=== PATIENT | female | born 1970 | race Caucasian/White ===

== ENCOUNTER 2017-02-19 07:52 | Inpatient (IN) | payer OTHER ==
[~2017-02-19] VITALS: Ht 160 cm; Wt 79.1 kg
[~2017-02-19 07:52] MED LIST: ALBU18HF INH; HYDR-3152 PO; LEVO500T33 PO; METR500T PO; POLY17PO5 PO; SENN1TAB7 PO
[2017-02-19] MEDS ORDERED: ONDANSETRON 2MG/ML, 2ML IVPush ONE (08:30)
[2017-02-19] MEDS ORDERED: SODIUM CHLORIDE 0.9% 1,000ML IVBOLUS ONE (08:30)
[2017-02-19] MEDS ORDERED: FAMOTIDINE 20 MG/2 ML IVP ONE (08:30)
[2017-02-19] MEDS ORDERED: FAMOTIDINE 20 MG/2 ML ONE (08:41)
[2017-02-19] MEDS ORDERED: MORPHINE SULFATE 4 MG/ML, 1ML ONE ×2 (08:41→11:46)
[2017-02-19] MEDS ORDERED: ONDANSETRON 2MG/ML, 2ML ONE (08:41)
[2017-02-19] MEDS: MORPHINE SULFATE 4 MG/ML, 1ML IVPush PRN ×2 (08:42→11:49)
[2017-02-19] MEDS ORDERED: MAALOX/HYOSCYAMINE/LIDOCAINE 45 ML BOTTLE ONE (09:08)
[2017-02-19 09:09] LABS: ASPARTATE AMINO TRANSFERASE 27 U/L (15-37); BLOOD UREA NITROGEN 12 mg/dL (7-18)
[2017-02-19] MEDS ORDERED: MAALOX/HYOSCYAMINE/LIDOCAINE 45 ML BOTTLE PO ONE (09:30)
[2017-02-19] MEDS ORDERED: METOCLOPRAMIDE 5 MG/ML, 2ML IVPush ONE (09:30)
[2017-02-19] MEDS ORDERED: OMNIPAQUE 350 MG/ML, 100ML BOTTLE ONE (10:08)
[2017-02-19] MEDS ORDERED: METOCLOPRAMIDE 5 MG/ML, 2ML ONE (10:33)
[2017-02-19] MEDS ORDERED: LORazepam 2 MG/ML, 1ML IVPush PRN (12:30)
[2017-02-19] MEDS ORDERED: hydrALAzine 20 MG/ML, 1ML IVPush PRN (12:30)
[2017-02-19] MEDS ORDERED: ACETAMINOPHEN 325 MG TABLET PO PRN (12:30)
[2017-02-19] MEDS ORDERED: morphine SULFATE 10 MG/ML, 1ML IVPush PRN (12:30)
[2017-02-19] MEDS ORDERED: PROMETHAZINE 25 MG/ML, 1ML IM PRN (12:30)
[2017-02-19] MEDS ORDERED: HYDROcodone/APAP 5/325 TABLET PO PRN (12:30)
[2017-02-19] MEDS ORDERED: ONDANSETRON 2MG/ML, 2ML IVPush PRN (12:30)
[2017-02-19 12:40] VITALS: BP 132/82
[2017-02-19] MEDS: SODIUM CHLORIDE 0.9% 1,000 ML IV SCH (13:07)
[2017-02-19] MEDS: ENOXAPARIN 40 MG/0.4 ML SQ SCH (13:08)
[2017-02-19 13:09] VITALS: BP 132/82
[2017-02-19 14:00] VITALS: BP 132/82
[2017-02-19] MEDS ORDERED: SODIUM PHOSPHATE 20 MMOL in SODIUM CHLORIDE 0.9% 500 ML IV ONE (14:30)
[2017-02-19 20:03] VITALS: BP 104/64
[2017-02-19] MEDS: CALCIUM CARBONATE 500 MG TAB.CHEW PO SCH (21:34)
[2017-02-20] MEDS: SODIUM CHLORIDE 0.9% 1,000 ML IV SCH ×2 (01:19→12:26)
[2017-02-20 03:10] VITALS: BP 111/69
[2017-02-20 05:10] LABS: ASPARTATE AMINO TRANSFERASE 23 U/L (15-37); BLOOD UREA NITROGEN 6 mg/dL (7-18)
[2017-02-20 06:16] VITALS: BP 115/72
[2017-02-20 06:19] LABS: DIFF TOTAL CELLS COUNTED 100 CELL DIFF
[2017-02-20 06:23] LABS: VERIFY COUNTS? YES
[2017-02-20] MEDS: CALCIUM CARBONATE 500 MG TAB.CHEW PO SCH (10:02)
[2017-02-20] MEDS: ENOXAPARIN 40 MG/0.4 ML SQ SCH (12:25)
[2017-02-20 13:02] VITALS: BP 136/85
[2017-02-20] MEDS ORDERED: HYDR-3240 PO (13:55)
[2017-02-20] MEDS ORDERED: ONDA4TAB10 PO (13:55)
== END 2017-02-20 16:40 | disposition home or self-care (01) | DRG 392 ==
LOC: ED 08:05 → EDIP 10:58 → 3NE 12:32
DX: A08.4 Viral intestinal infection, unspecified (principal); J45.909 Unspecified asthma, uncomplicated; E83.51 Hypocalcemia; E86.0 Dehydration; Z90.49 Acquired absence of other specified parts of digestive tract; Z98.51 Tubal ligation status
CPT/HCPCS: 36415; 74020; 74177; 80053; 81003; 82705; 83690; 83735; 84100; 84703; 85025; 87046; 87324; 87899; 89055; 96374; 96375; 96376; J1650; J2405; Q9967; J2270; J2765; J7030; J7040; S0028

== ENCOUNTER 2017-03-26 14:46 | Emergency (ER) | payer OTHER ==
[~2017-03-26] VITALS: Ht 160 cm; Wt 81.1 kg
[~2017-03-26 14:46] MED LIST changes: +HYDR-3240 PO; -LEVO500T33 PO; +LEVO500T47 PO; +ONDA4TAB10 PO
[2017-03-26 14:49] VITALS: BP 131/86
[2017-03-26] MEDS ORDERED: KETOROLAC 30 MG/1 ML ONE (16:12)
[2017-03-26] MEDS ORDERED: DIAZEPAM 5 MG TABLET ONE (16:12)
[2017-03-26] MEDS ORDERED: KETOROLAC 30 MG/1 ML IM ONE (16:30)
[2017-03-26] MEDS ORDERED: DIAZEPAM 5 MG TABLET PO ONE (16:30)
== END 2017-03-26 17:01 | disposition home or self-care (01) ==
LOC: ED 16:55
DX: M54.5 Low back pain (principal); X50.9XXA Other and unspecified overexertion or strenuous movements or postures, initial encounter; Y93.89 Activity, other specified; Y99.0 Civilian activity done for income or pay; Y92.89 Other specified places as the place of occurrence of the external cause
CPT/HCPCS: 72110; 96372; 99284; J1885

== ENCOUNTER 2017-06-21 19:24 | Inpatient (IN) | payer OTHER ==
[~2017-06-21] VITALS: Ht 160 cm; Wt 81.6 kg
[2017-06-21] MEDS ORDERED: ASPIRIN 81 MG TABLET CHEW PO ONE (19:30)
[2017-06-21 19:59] LABS: HEMATOCRIT 41.2 % (34.6-47.8); HEMOGLOBIN 13.6 g/dL (11.7-16.4); WHITE BLOOD COUNT 7.9 x10^3/uL (3.4-10)
[2017-06-21 20:00] LABS: BLOOD UREA NITROGEN 16 mg/dL (7-18)
[2017-06-21 20:07] LABS: IS PT STATUS REG ER OR PRE ER? YES
[2017-06-21] MEDS ORDERED: ASPIRIN 81 MG TABLET CHEW ONE (20:08)
[2017-06-21] MEDS ORDERED: NITROGLYCERIN SINGLE TAB 0.4 MG SL PRN (20:30)
[2017-06-21] MEDS ORDERED: NITROGLYCERIN SINGLE TAB 0.4 MG SL ONE (20:31)
[2017-06-21] MEDS: SODIUM CHLORIDE FLUSH 10ML SYR IVF SCH (21:00)
[2017-06-21] MEDS ORDERED: morphine SULFATE 10 MG/ML, 1ML IV PRN (21:00)
[2017-06-21] MEDS ORDERED: NITROGLYCERIN 0.4 MG/SPRAY SL PRN (21:00)
[2017-06-21] MEDS ORDERED: SODIUM CHLORIDE FLUSH 10ML SYR IVF PRN (21:00)
[2017-06-21] MEDS ORDERED: NITROGLYCERIN 0.4 MG BOTTLE (25 TABS) SL PRN (21:00)
[2017-06-21 21:21] LABS: IS PT STATUS REG ER OR PRE ER? YES
[2017-06-21] MEDS ORDERED: SODIUM CHLORIDE 0.9% 1,000ML IVBOLUS ONE (22:00)
[2017-06-21 22:33] VITALS: BP 136/85
[2017-06-22 00:09] LABS: IS PT STATUS REG ER OR PRE ER? NO
[2017-06-22 02:35] VITALS: BP 110/72
[2017-06-22] MEDS: ASPIRIN 325 MG TABLET EC PO SCH (05:46)
[2017-06-22 06:28] VITALS: BP 133/85
[2017-06-22 06:34] VITALS: BP 126/75
[2017-06-22 06:46] VITALS: BP 122/72
[2017-06-22] MEDS: SODIUM CHLORIDE FLUSH 10ML SYR IVF SCH (08:03)
[2017-06-22] MEDS ORDERED: REGADENOSON 0.4 MG/5 ML SYRINGE ONE (08:18)
[2017-06-22] MEDS ORDERED: KETOROLAC 30 MG/1 ML IVPush PRN (09:00)
[2017-06-22] MEDS: ACETAMINOPHEN 325 MG TABLET PO PRN ×2 (10:54→17:10)
[2017-06-22 11:19] LABS: IS PT STATUS REG ER OR PRE ER? NO
[2017-06-22 12:17] VITALS: BP 119/76
[2017-06-22] MEDS ORDERED: MAALOX/HYOSCYAMINE/LIDOCAINE 45 ML BTL PO ONE (13:30)
[2017-06-22 20:15] VITALS: BP 99/63
[2017-06-23] MEDS: SODIUM CHLORIDE FLUSH 10ML SYR IVF SCH ×2 (02:24→08:36)
[2017-06-23] MEDS: ACETAMINOPHEN 325 MG TABLET PO PRN (02:24)
[2017-06-23 02:25] VITALS: BP 109/70
[2017-06-23] MEDS: ASPIRIN 325 MG TABLET EC PO SCH (06:37)
[2017-06-23 07:21] VITALS: BP 126/79
== END 2017-06-23 13:35 | disposition home or self-care (01) | DRG 313 ==
LOC: ED 20:35 → EDIP 20:58 → 5SO 22:10
PROVIDERS: ADMIT Family Medicine; ATTEND Internal Medicine
DX: R07.9 Chest pain, unspecified (principal); I25.2 Old myocardial infarction; Z82.3 Family history of stroke; Z82.49 Family history of ischemic heart disease and other diseases of the circulatory system; Z83.3 Family history of diabetes mellitus; Z86.73 Personal history of transient ischemic attack (TIA), and cerebral infarction without residual deficits; Z87.442 Personal history of urinary calculi; Z90.49 Acquired absence of other specified parts of digestive tract
CPT/HCPCS: 36415; 71010; 78452; 80048; 80061; 82040; 83880; 84484; 85025; 93005; 93017; 99285; J1885; J2785; A9502; C9898; J7030

== ENCOUNTER → 2017-09-07 | Outpatient (CLI) | payer OTHER | END | disposition home or self-care (01) | LOC: CFH 07:07 | PROVIDERS: ATTEND Emergency Medicine | DX: Z12.31 Encounter for screening mammogram for malignant neoplasm of breast (principal) | CPT/HCPCS: 77063; 77067 ==

== ENCOUNTER 2018-02-11 03:19 | Emergency (ER) | payer OTHER ==
[~2018-02-11] VITALS: Ht 160 cm; Wt 86.0 kg
[2018-02-11 03:51] LABS: BASOPHILS # (AUTO) 0.05 x10^3/uL (0-0.1); BASOPHILS % (AUTO) 1 % (0-1); EOSINOPHILS # (AUTO) 0.74 x10^3/uL (0-0.4); EOSINOPHILS % (AUTO) 10 % (1-7); LYMPHOCYTES # (AUTO) 2.23 x10^3/uL (1-3.4); LYMPHOCYTES % (AUTO) 31 % (22-44); MD NO; MEAN CORPUSCULAR HEMOGLOBIN 30.1 pg (27.0-34.8); MEAN CORPUSCULAR HGB CONC 33.7 g/dL (32.4-35.8); MEAN CORPUSCULAR VOLUME 89.3 fL (80-100); MEAN PLATELET VOLUME 8.6 fL (7.4-10.4); MONOCYTES # (AUTO) 0.67 x10^3/uL (0.2-0.8); MONOCYTES % (AUTO) 9 % (2-9); NEUTROPHILS % (AUTO) 50 % (42-75); PLATELET COUNT 318 x10^3/uL (130-400); RED BLOOD COUNT 4.43 x10^6/uL (3.82-5.3); RED CELL DISTRIBUTION WIDTH 12.8 % (9.6-15.2)
[2018-02-11] MEDS ORDERED: CYCLOBENZAPRINE 10 MG TABLET ONE (03:54)
[2018-02-11] MEDS ORDERED: IBUPROFEN 200 MG TABLET ONE (03:55)
[2018-02-11] MEDS ORDERED: CYCLOBENZAPRINE 10 MG TABLET PO ONE (04:00)
[2018-02-11] MEDS ORDERED: IBUPROFEN 200 MG TABLET PO ONE (04:00)
[2018-02-11 04:01] LABS: ALANINE AMINOTRANSFERASE 53 U/L (12-78); ALBUMIN 3.8 g/dL (3.4-5.0); ANION GAP 7 mmol/L (5-15); CALCIUM 8.6 mg/dL (8.5-10.1); CHLORIDE 108 mmol/L (98-107)
[2018-02-11 04:06] LABS: ALKALINE PHOSPHATASE 82 U/L (45-117); BILIRUBIN,TOTAL 0.5 mg/dL (0.2-1.0); CREATININE 0.85 mg/dL (0.55-1.02); TOTAL PROTEIN 7.2 g/dL (6.4-8.2); TROPONIN I < 0.015 ng/mL (0.000-0.045)
[2018-02-11 04:46] VITALS: BP 125/75
== END 2018-02-11 04:48 | disposition home or self-care (01) ==
LOC: ED 03:43
DX: S29.012A Strain of muscle and tendon of back wall of thorax, initial encounter (principal); R07.89 Other chest pain; X58.XXXA Exposure to other specified factors, initial encounter; Y93.89 Activity, other specified; Y92.89 Other specified places as the place of occurrence of the external cause; Y99.8 Other external cause status; Z90.89 Acquired absence of other organs
CPT/HCPCS: 36415; 71045; 80053; 84484; 84703; 85025; 93005; 99285

== ENCOUNTER 2018-07-22 03:42 | Emergency (ER) | payer OTHER ==
[~2018-07-22] VITALS: Ht 160 cm; Wt 86.0 kg
[~2018-07-22 03:42] MED LIST changes: -SENN1TAB7 PO; +SENN1TAB8 PO
[2018-07-22] MEDS ORDERED: SODIUM CHLORIDE FLUSH 10ML SYR IVF ONE (04:30)
[2018-07-22 04:37] LABS: BASOPHILS # (AUTO) 0.07 x10^3/uL (0-0.1); BASOPHILS % (AUTO) 1 % (0-1); EOSINOPHILS # (AUTO) 0.98 x10^3/uL (0-0.4); EOSINOPHILS % (AUTO) 15 % (1-7); LYMPHOCYTES # (AUTO) 1.87 x10^3/uL (1-3.4); LYMPHOCYTES % (AUTO) 29 % (22-44); MD NO; MEAN CORPUSCULAR HEMOGLOBIN 29.8 pg (27.0-34.8); MEAN CORPUSCULAR HGB CONC 33.6 g/dL (32.4-35.8); MEAN CORPUSCULAR VOLUME 88.6 fL (80-100); MEAN PLATELET VOLUME 8.6 fL (7.4-10.4); MONOCYTES # (AUTO) 0.47 x10^3/uL (0.2-0.8); MONOCYTES % (AUTO) 7 % (2-9); NEUTROPHILS # (AUTO) 3.05 x10^3/uL (1.8-6.8); NEUTROPHILS % (AUTO) 47 % (42-75); PLATELET COUNT 333 x10^3/uL (130-400); RED BLOOD COUNT 4.62 x10^6/uL (3.82-5.3); RED CELL DISTRIBUTION WIDTH 13.1 % (9.6-15.2)
[2018-07-22 04:42] LABS: INTERNATIONAL NORMALIZED RATIO 0.95 (0.93-1.1); PROTHROMBIN TIME 10.1 Seconds (9.6-11.5)
[2018-07-22 04:43] LABS: ALANINE AMINOTRANSFERASE 47 U/L (12-78); ALBUMIN 3.7 g/dL (3.4-5.0); ANION GAP 10 mmol/L (5-15); CALCIUM 8.6 mg/dL (8.5-10.1); CHLORIDE 109 mmol/L (98-107); CREATININE 0.66 mg/dL (0.55-1.02)
[2018-07-22 04:47] LABS: ALKALINE PHOSPHATASE 87 U/L (45-117); BILIRUBIN,TOTAL 0.6 mg/dL (0.2-1.0); TOTAL PROTEIN 7.2 g/dL (6.4-8.2); TROPONIN I < 0.015 ng/mL (0.000-0.045)
[2018-07-22] MEDS ORDERED: MAALOX/HYOSCYAMINE/LIDOCAINE 45 ML BTL ONE (05:17)
[2018-07-22] MEDS ORDERED: ONDANSETRON ODT 4 MG ONE (05:17)
[2018-07-22] MEDS ORDERED: ONDANSETRON ODT 4 MG PO ONE (05:30)
[2018-07-22] MEDS ORDERED: MAALOX/HYOSCYAMINE/LIDOCAINE 45 ML BTL PO ONE (05:30)
[2018-07-22] MEDS ORDERED: ONDANSETRON 2MG/ML, 2ML ONE (05:46)
[2018-07-22] MEDS ORDERED: MORPHINE SULFATE 4 MG/ML, 1ML ONE ×2 (05:46→06:44)
[2018-07-22] MEDS: MORPHINE SULFATE 4 MG/ML, 1ML IVPush PRN ×2 (05:50→07:00)
[2018-07-22] MEDS ORDERED: ONDANSETRON 2MG/ML, 2ML IVPush ONE (06:00)
[2018-07-22 06:24] LABS: CULTURE INDICATED? NO; MICROSCOPIC NOT IND
[2018-07-22] MEDS ORDERED: OMNIPAQUE 350 MG/ML, 100ML BOTTLE ONE (06:48)
[2018-07-22] MEDS ORDERED: DICYCLOMINE 10 MG/ML, 2ML IM ONE (07:00)
[2018-07-22] MEDS ORDERED: DICYCLOMINE 10 MG/ML, 2ML ONE (07:06)
[2018-07-22 07:42] LABS: TROPONIN I < 0.015 ng/mL (0.000-0.045)
[2018-07-22 07:56] VITALS: BP 115/72
== END 2018-07-22 08:39 | disposition home or self-care (01) ==
LOC: ED 06:23
DX: R07.89 Other chest pain (principal); R10.84 Generalized abdominal pain; E78.5 Hyperlipidemia, unspecified
CPT/HCPCS: 36415; 71045; 74177; 80053; 81003; 83690; 83880; 84484; 85025; 85610; 85730; 93005; 96372; 96374; 96375; 96376; 99284; J0500; J2405; Q0162; Q9967

== ENCOUNTER → 2018-09-15 | Outpatient (CLI) | payer OTHER | END | disposition home or self-care (01) | LOC: CFH 10:35 | PROVIDERS: ATTEND Obstetrics & Gynecology | DX: Z12.31 Encounter for screening mammogram for malignant neoplasm of breast (principal) | CPT/HCPCS: 77067 ==

== ENCOUNTER → 2018-11-03 | Outpatient (CLI) | payer OTHER ==
[~2018-11-03] MED LIST changes: +OMNIPAQUE 350 MG/ML, 100ML BOTTLE ONE; +SENN-177 PO; -SENN1TAB8 PO
== END | disposition home or self-care (01) ==
LOC: CFH 09:55
PROVIDERS: ATTEND Family Medicine
DX: K76.0 Fatty (change of) liver, not elsewhere classified (principal); N28.1 Cyst of kidney, acquired; Z90.49 Acquired absence of other specified parts of digestive tract; Z98.51 Tubal ligation status
CPT/HCPCS: 74177; Q9967

== ENCOUNTER 2019-01-09 20:28 | Emergency (ER) | payer OTHER ==
[~2019-01-09] VITALS: Ht 160 cm; Wt 83.4 kg
[~2019-01-09 20:28] MED LIST changes: -OMNIPAQUE 350 MG/ML, 100ML BOTTLE ONE
--- NOTE | 2019-01-09 20:35 | NUR ---
bib staff for code 250. 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 pt placed on all monitors, currently nsr on monitor with ekg being done.
--- NOTE | 2019-01-09 20:41 | NUR ---
Code 250 called because patient reports single brief episode of vision loss. Denies syncope. Only complaint in ED is mild nausea. Placed on NIBP, pulse ox and monitoring and evaluation advisor. EKG done. Placed on NIBP, pulse ox and monitoring and evaluation advisor. Will continue to monitor.
--- NOTE | 2019-01-09 21:18 | NUR ---
Resting in [facility]. No other needs at this time.
[2019-01-09 21:25] LABS: BASOPHILS # (AUTO) 0.03 x10^3/uL (0-0.1); BASOPHILS % (AUTO) 0 % (0-1); EOSINOPHILS # (AUTO) 0.61 x10^3/uL (0-0.4); EOSINOPHILS % (AUTO) 8 % (1-7); LYMPHOCYTES # (AUTO) 2.29 x10^3/uL (1-3.4); LYMPHOCYTES % (AUTO) 28 % (22-44); MD NO; MEAN CORPUSCULAR HEMOGLOBIN 29.5 pg (27.0-34.8); MEAN CORPUSCULAR HGB CONC 32.3 g/dL (32.4-35.8); MEAN CORPUSCULAR VOLUME 91.2 fL (80-100); MEAN PLATELET VOLUME 8.5 fL (7.4-10.4); MONOCYTES # (AUTO) 0.53 x10^3/uL (0.2-0.8); MONOCYTES % (AUTO) 7 % (2-9); NEUTROPHILS # (AUTO) 4.73 x10^3/uL (1.8-6.8); NEUTROPHILS % (AUTO) 58 % (42-75); PLATELET COUNT 307 x10^3/uL (130-400); RED BLOOD COUNT 4.61 x10^6/uL (3.82-5.3)
[2019-01-09 21:36] LABS: ALBUMIN 3.7 g/dL (3.4-5.0); ANION GAP 6 mmol/L (5-15); CALCIUM 8.5 mg/dL (8.5-10.1); CHLORIDE 110 mmol/L (98-107); CREATININE 0.93 mg/dL (0.55-1.02)
--- NOTE | 2019-01-09 22:00 | NUR ---
Report to TATIANA Hill.
[2019-01-09 22:57] VITALS: BP 134/80
== END 2019-01-09 23:02 | disposition home or self-care (01) ==
LOC: ED 21:16
DX: R55 Syncope and collapse (principal); F17.200 Nicotine dependence, unspecified, uncomplicated; Z90.49 Acquired absence of other specified parts of digestive tract
CPT/HCPCS: 36415; 80048; 82040; 82962; 85025; 93005; 99284

== ENCOUNTER 2019-07-05 06:53 | Observation (INO) | payer OTHER ==
[2019-07-03 10:12] LABS: BASOPHILS # (AUTO) 0.05 x10^3/uL (0-0.1); BASOPHILS % (AUTO) 1 % (0-1); EOSINOPHILS # (AUTO) 0.38 x10^3/uL (0-0.4); EOSINOPHILS % (AUTO) 6 % (1-7); LYMPHOCYTES # (AUTO) 1.93 x10^3/uL (1-3.4); LYMPHOCYTES % (AUTO) 32 % (22-44); MD NO; MEAN CORPUSCULAR HEMOGLOBIN 29.7 pg (27.0-34.8); MEAN CORPUSCULAR HGB CONC 32.9 g/dL (32.4-35.8); MEAN CORPUSCULAR VOLUME 90.1 fL (80-100); MEAN PLATELET VOLUME 8.1 fL (7.4-10.4); MONOCYTES # (AUTO) 0.48 x10^3/uL (0.2-0.8); MONOCYTES % (AUTO) 8 % (2-9); NEUTROPHILS # (AUTO) 3.24 x10^3/uL (1.8-6.8); NEUTROPHILS % (AUTO) 53 % (42-75); PLATELET COUNT 307 x10^3/uL (130-400); RED BLOOD COUNT 4.74 x10^6/uL (3.82-5.3)
[2019-07-03 10:20] LABS: ALANINE AMINOTRANSFERASE 33 U/L (12-78); ALBUMIN 3.8 g/dL (3.4-5.0); ANION GAP 6 mmol/L (5-15); CALCIUM 8.8 mg/dL (8.5-10.1); CHLORIDE 106 mmol/L (98-107); CREATININE 0.65 mg/dL (0.55-1.02)
[2019-07-03 10:23] LABS: ALKALINE PHOSPHATASE 92 U/L (45-117); BILIRUBIN,TOTAL 0.5 mg/dL (0.2-1.0); TOTAL PROTEIN 7.7 g/dL (6.4-8.2)
[2019-07-03 12:08] LABS: HEMOGLOBIN A1C 5.4 % (4.2-6.3)
[~2019-07-05] VITALS: Ht 160 cm; Wt 82.5 kg
[~2019-07-05 06:53] MED LIST changes: +IBUP-1222 PO
[2019-07-05 07:24] VITALS: BP 161/94
[2019-07-05] MEDS ORDERED: LACTATED RINGERS 1,000 ML IV SCH (07:26)
[2019-07-05] MEDS ORDERED: LIDOCAINE-MPF 2% ,5ML ONE (07:29)
[2019-07-05] MEDS ORDERED: FENTANYL PF 250 MCG/5ML ONE (07:29)
[2019-07-05] MEDS ORDERED: MIDAZOLAM 1 MG/ML, 2ML ONE (07:29)
[2019-07-05] MEDS ORDERED: SUCCINYLCHOLINE 20 MG/ML, 10ML ONE (07:33)
[2019-07-05] MEDS ORDERED: PROPOFOL 10 MG/ML, 20ML ONE (07:33)
[2019-07-05] MEDS ORDERED: NEOSTIGMINE 1 MG/ML, 10ML ONE (07:33)
[2019-07-05] MEDS ORDERED: LIDOCAINE 4%, 4 ML SYR/CANN TP ONE (07:33)
[2019-07-05] MEDS ORDERED: CEFAZOLIN 1,000 MG ONE (07:33)
[2019-07-05] MEDS ORDERED: GLYCOPYRROLATE 0.2MG/1ML, 5ML ONE (07:33)
[2019-07-05] MEDS ORDERED: ROCURONIUM 10MG/ML,5ML ONE (07:33)
[2019-07-05] MEDS ORDERED: ONDANSETRON 2MG/ML, 2ML ONE (07:33)
[2019-07-05] MEDS ORDERED: DEXAMETHASONE 4 MG/ML, 1ML ONE (07:33)
[2019-07-05] MEDS ORDERED: GENTAMICIN 80 MG/2 ML ONE (08:44)
[2019-07-05] MEDS ORDERED: BUPIVACAINE/PF 0.25% ONE (08:44)
[2019-07-05] MEDS ORDERED: VANCOMYCIN 500 MG ONE (08:44)
[2019-07-05] MEDS ORDERED: FLUORESCEIN SODIUM 500 MG/5 ML ONE (08:44)
[2019-07-05] MEDS ORDERED: EPINEPHRINE 1 MG/ML, 1ML ONE (08:45)
[2019-07-05] MEDS ORDERED: ACETAMINOPHEN 325 MG TABLET PO PRN ×2 (09:00→15:00)
[2019-07-05] MEDS ORDERED: PROMETHAZINE 25 MG SUPP PR PRN (09:00)
[2019-07-05] MEDS ORDERED: OXYcodone 5 MG/5 ML ORAL.SOL UDC PO PRN (09:00)
[2019-07-05] MEDS ORDERED: HYDROmorphone 2 MG/ML, 1ML IVPush PRN (09:00)
[2019-07-05] MEDS ORDERED: PROMETHAZINE 25 MG/ML, 1ML IV PRN (09:00)
[2019-07-05] MEDS ORDERED: MEPERIDINE/PF 25MG/ML,1ML IVPush PRN (09:00)
[2019-07-05] MEDS ORDERED: ONDANSETRON ODT 8 MG PO PRN (09:00)
[2019-07-05] MEDS ORDERED: LORazepam 2 MG/ML, 1ML IVPush PRN (09:00)
[2019-07-05] MEDS ORDERED: ONDANSETRON 2MG/ML, 2ML IV PRN (09:00)
[2019-07-05] MEDS ORDERED: FENTANYL PF 100 MCG/2ML ONE ×3 (10:35→13:19)
[2019-07-05] MEDS ORDERED: THROMBIN SPRAY 20,000 UNIT SPRAY TP ONE (10:49)
[2019-07-05] MEDS ORDERED: ACETAMINOPHEN 650 MG/20.3 ML UDC ONE (12:19)
[2019-07-05] MEDS ORDERED: OXYcodone 5 MG/5 ML ORAL.SOL UDC ONE (12:19)
[2019-07-05] MEDS ORDERED: ACETAMINOPHEN 325 MG TABLET ONE (12:19)
[2019-07-05] MEDS: FENTANYL PF 100 MCG/2ML IV PRN ×3 (12:20→13:20)
[2019-07-05] MEDS ORDERED: KETOROLAC 30 MG/1 ML ONE (12:29)
[2019-07-05] MEDS ORDERED: KETOROLAC 30 MG/1 ML IM ONE (13:00)
[2019-07-05] MEDS ORDERED: KETOROLAC 30 MG/1 ML IVPush ONE (13:00)
[2019-07-05] MEDS ORDERED: PROMETHAZINE 25 MG/ML, 1ML ONE (13:20)
[2019-07-05] MEDS: D5%-LACTATED RINGERS 1,000 ML IV SCH ×2 (14:37→21:11)
[2019-07-05] MEDS ORDERED: FLURAZEPAM PO PRN (15:00)
[2019-07-05] MEDS ORDERED: morphine SULFATE 10 MG/ML, 1ML IVPush PRN (15:00)
[2019-07-05] MEDS ORDERED: MEPERIDINE/PF 50 MG/ML IM PRN (15:00)
[2019-07-05] MEDS ORDERED: KETOROLAC 30 MG/1 ML IVPush PRN (15:00)
[2019-07-05] MEDS ORDERED: ACETAMINOPHEN 650 MG SUPP PR PRN (15:00)
[2019-07-05 16:48] LABS: BASOPHILS % (AUTO) 0 % (0-1); EOSINOPHILS # (AUTO) 0.37 x10^3/uL (0-0.4); EOSINOPHILS % (AUTO) 2 % (1-7); LYMPHOCYTES # (AUTO) 0.63 x10^3/uL (1-3.4); LYMPHOCYTES % (AUTO) 4 % (22-44); MEAN CORPUSCULAR HEMOGLOBIN 30.4 pg (27.0-34.8); MEAN CORPUSCULAR VOLUME 92.1 fL (80-100); MEAN PLATELET VOLUME 8.7 fL (7.4-10.4); MONOCYTES # (AUTO) 0.15 x10^3/uL (0.2-0.8); MONOCYTES % (AUTO) 1 % (2-9); NEUTROPHILS # (AUTO) 14.53 x10^3/uL (1.8-6.8); NEUTROPHILS % (AUTO) 93 % (42-75); PLATELET COUNT 315 x10^3/uL (130-400); RED BLOOD COUNT 4.26 x10^6/uL (3.82-5.3); RED CELL DISTRIBUTION WIDTH 13.4 % (9.6-15.2)
[2019-07-05] MEDS: OXYcodone/APAP 5/325MG TABLET PO PRN (17:05)
[2019-07-05 17:10] LABS: MD SCAN
[2019-07-05 20:00] VITALS: BP 106/70
[2019-07-05] MEDS: SIMETHICONE 80 MG CHEW TAB PO SCH ×2 (21:00→21:08)
[2019-07-05] MEDS ORDERED: ZOLPIDEM 5MG TABLET PO PRN (21:00)
[2019-07-05] MEDS: IBUPROFEN 600 MG TABLET PO SCH (21:08)
[2019-07-05] MEDS: DOCUSATE 100 MG CAPSULE PO SCH (21:09)
[2019-07-06] MEDS: IBUPROFEN 600 MG TABLET PO SCH ×4 (03:41→16:15)
[2019-07-06 03:46] VITALS: BP 100/61
[2019-07-06 04:41] LABS: BASOPHILS # (AUTO) 0.02 x10^3/uL (0-0.1); BASOPHILS % (AUTO) 0 % (0-1); EOSINOPHILS % (AUTO) 0 % (1-7); LYMPHOCYTES # (AUTO) 1.51 x10^3/uL (1-3.4); LYMPHOCYTES % (AUTO) 12 % (22-44); MD NO; MEAN CORPUSCULAR HEMOGLOBIN 29.7 pg (27.0-34.8); MEAN CORPUSCULAR HGB CONC 32.4 g/dL (32.4-35.8); MEAN CORPUSCULAR VOLUME 91.6 fL (80-100); MEAN PLATELET VOLUME 8.4 fL (7.4-10.4); MONOCYTES # (AUTO) 0.85 x10^3/uL (0.2-0.8); MONOCYTES % (AUTO) 7 % (2-9); NEUTROPHILS # (AUTO) 10.45 x10^3/uL (1.8-6.8); NEUTROPHILS % (AUTO) 82 % (42-75); PLATELET COUNT 269 x10^3/uL (130-400); RED BLOOD COUNT 3.93 x10^6/uL (3.82-5.3); RED CELL DISTRIBUTION WIDTH 12.8 % (9.6-15.2)
[2019-07-06 04:51] LABS: ANION GAP 3 mmol/L (5-15); CALCIUM 8.4 mg/dL (8.5-10.1); CHLORIDE 107 mmol/L (98-107)
[2019-07-06 04:55] LABS: ALANINE AMINOTRANSFERASE 31 U/L (12-78); ALKALINE PHOSPHATASE 67 U/L (45-117); BILIRUBIN,TOTAL 0.7 mg/dL (0.2-1.0); CREATININE 0.53 mg/dL (0.55-1.02); TOTAL PROTEIN 6.2 g/dL (6.4-8.2)
[2019-07-06 08:12] VITALS: BP 102/63
[2019-07-06] MEDS ORDERED: SENNA/DOCUSATE TABLET PO SCH (09:00)
[2019-07-06] MEDS: DOCUSATE 100 MG CAPSULE PO SCH (09:18)
[2019-07-06] MEDS: SIMETHICONE 80 MG CHEW TAB PO SCH ×2 (09:19→16:15)
[2019-07-06] MEDS: D5%-LACTATED RINGERS 1,000 ML IV SCH (11:04)
[2019-07-06] MEDS: OXYcodone/APAP 5/325MG TABLET PO PRN (12:11)
[2019-07-06 15:00] VITALS: BP 124/74
[2019-07-06] MEDS ORDERED: DOCU-131 PO (16:29)
[2019-07-06] MEDS ORDERED: OXYC-302 PO (16:29)
== END 2019-07-06 18:00 | disposition home or self-care (01) ==
LOC: OUT 06:53 → 4NW 20:01 → OUT 23:10 → 4NW 23:11
PROVIDERS: ADMIT Obstetrics & Gynecology; ATTEND Obstetrics & Gynecology
DX: R10.2 Pelvic and perineal pain (principal); N81.10 Cystocele, unspecified; N95.2 Postmenopausal atrophic vaginitis; N39.46 Mixed incontinence; G89.29 Other chronic pain; E11.9 Type 2 diabetes mellitus without complications; Z90.49 Acquired absence of other specified parts of digestive tract; Z98.51 Tubal ligation status; Z98.891 History of uterine scar from previous surgery
CPT/HCPCS: 36415; 45541; 57240; 58552; 71046; 80053; 83036; 84703; 85025; 86850; 86900; 88307; 93005; C1771; G0378; J0171; J0330; J0690; J1100; J1885; J2250; J2405; J2550; J2704; J2710; J3010; J3490; J7120; J3370; J1580

== ENCOUNTER 2019-11-13 15:51 | Emergency (ER) | payer OTHER ==
[~2019-11-13] VITALS: Ht 160 cm; Wt 84.6 kg
[~2019-11-13 15:51] MED LIST changes: +DOCU-131 PO; +OXYC-302 PO
--- NOTE | 2019-11-13 18:44 | NUR ---
MERRY GO ROUND OPERATOR: PT TO ROOM FROM LOBBY
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
--- NOTE | 2019-11-13 19:16 | NUR ---
CURRENTLY: C/O PAIN TO POSTERIOR NECK AND UPPER SHOULDERS. PT A&OX4, RESP EVEN & UNLABORED, SPEECH CLEAR. SKIN INTACT AND WNL ON NECK & SHOULDERS. NO MED TAKEN FOR PAIN. DENIES NAUSEA. LAST ORAL: SMALL AMOUNT FOOD AROUND 1100.
[2019-11-13 19:21] VITALS: BP 127/81
--- NOTE | 2019-11-13 19:28 | NUR ---
PT STATES SHE'LL CALL POLICE AFTER RETURNING HOME.
[2019-11-13] MEDS ORDERED: IBUPROFEN 800 MG TABLET PO ONE (20:00)
[2019-11-13] MEDS ORDERED: METHOCARBAMOL 750 MG TABLET PO ONE (20:00)
[2019-11-13] MEDS ORDERED: METHOCARBAMOL 750 MG TABLET ONE (20:04)
[2019-11-13] MEDS ORDERED: IBUPROFEN 800 MG TABLET ONE (20:04)
== END 2019-11-13 20:24 | disposition home or self-care (01) ==
LOC: ED 19:30
DX: S06.0X0A Concussion without loss of consciousness, initial encounter (principal); R51 Headache; M54.2 Cervicalgia; E78.5 Hyperlipidemia, unspecified; Z90.49 Acquired absence of other specified parts of digestive tract; Z90.89 Acquired absence of other organs; Z90.710 Acquired absence of both cervix and uterus; Y04.8XXA Assault by other bodily force, initial encounter; Y93.89 Activity, other specified; Y92.009 Unspecified place in unspecified non-institutional (private) residence as the place of occurrence of the external cause; Y99.8 Other external cause status
CPT/HCPCS: 70450; 72125; 99285

== ENCOUNTER 2020-02-09 04:51 | Outpatient (CLI) | payer OTHER ==
[2020-02-09 06:32] LABS: MICROSCOPIC NOT IND
[2020-02-09 06:35] LABS: BASOPHILS # (AUTO) 0.03 x10^3/uL (0-0.1); BASOPHILS % (AUTO) 0 % (0-1); EOSINOPHILS # (AUTO) 0.42 x10^3/uL (0-0.4); EOSINOPHILS % (AUTO) 6 % (1-7); LYMPHOCYTES # (AUTO) 2.01 x10^3/uL (1-3.4); LYMPHOCYTES % (AUTO) 26 % (22-44); MD NO; MEAN CORPUSCULAR HEMOGLOBIN 29.2 pg (27.0-34.8); MEAN CORPUSCULAR HGB CONC 32.4 g/dL (32.4-35.8); MEAN PLATELET VOLUME 8.3 fL (7.4-10.4); MONOCYTES # (AUTO) 0.78 x10^3/uL (0.2-0.8); MONOCYTES % (AUTO) 10 % (2-9); NEUTROPHILS # (AUTO) 4.49 x10^3/uL (1.8-6.8); NEUTROPHILS % (AUTO) 58 % (42-75); PLATELET COUNT 310 x10^3/uL (130-400); RED BLOOD COUNT 4.32 x10^6/uL (3.82-5.3); RED CELL DISTRIBUTION WIDTH 13.2 % (9.6-15.2)
[2020-02-09 06:45] LABS: ALBUMIN 3.6 g/dL (3.4-5.0); ANION GAP 5 mmol/L (5-15); CALCIUM 8.4 mg/dL (8.5-10.1); CHLORIDE 105 mmol/L (98-107)
[2020-02-09 06:54] LABS: % IRON SATURATION 21 % (20-55); ALANINE AMINOTRANSFERASE 39 U/L (12-78); ALKALINE PHOSPHATASE 80 U/L (45-117); BILIRUBIN,TOTAL 0.3 mg/dL (0.2-1.0); CHOL/HDL RATIO 4.2; CHOLESTEROL, TOTAL 190 mg/dL (140-239); CREATININE 0.73 mg/dL (0.55-1.02); HDL CHOL % 24 % (28-40); HDL CHOLESTEROL (DIRECT) 45 mg/dL (40-60); IRON LEVEL 63 mcg/dL (50-170); LDL CHOLESTEROL,CALCULATED 108 mg/dL (54-169); LDL/HDL RATIO 2.4 (0.5-3.0); TOTAL IRON BINDING CAPACITY 300 mcg/dL (250-450); TOTAL PROTEIN 7.5 g/dL (6.4-8.2); TRIGLYCERIDES 183 mg/dL (50-200); VLDL CHOLESTEROL 37 mg/dL (0-25)
== END 2020-02-09 23:59 | disposition home or self-care (01) ==
LOC: LAB 04:51
PROVIDERS: ATTEND Family Medicine
DX: Z00.00 Encounter for general adult medical examination without abnormal findings (principal); R53.82 Chronic fatigue, unspecified; R79.9 Abnormal finding of blood chemistry, unspecified
CPT/HCPCS: 36415; 80053; 80061; 81003; 82607; 82728; 83036; 83540; 83550; 84439; 84443; 84481; 85025

== ENCOUNTER → 2020-04-01 | Outpatient (CLI) | payer OTHER | END | disposition home or self-care (01) | LOC: CFH 07:28 | PROVIDERS: ATTEND Family Medicine | DX: Z12.31 Encounter for screening mammogram for malignant neoplasm of breast (principal) | CPT/HCPCS: 77063; 77067 ==

== ENCOUNTER 2020-06-03 22:06 | Emergency (ER) | payer OTHER ==
[~2020-06-03] VITALS: Ht 160 cm; Wt 83.6 kg
[2020-06-03 22:13] VITALS: BP 119/83
[2020-06-03] MEDS ORDERED: KETOROLAC 30 MG/1 ML ONE (22:47)
[2020-06-03] MEDS ORDERED: KETOROLAC 30 MG/1 ML IM ONE (23:00)
--- NOTE | 2020-06-03 23:06 | NUR ---
ICE PACK APPLIED BY TECH. PT MEDICATED PER EMAR. 5 RIGHTS ADDRESSED
--- NOTE | 2020-06-04 | NUR ---
Patient/Caregiver given discharge instructions and they have confirmed that they understand the instructions. Patient ambulatory with steady gait.
== END 2020-06-04 00:02 | disposition home or self-care (01) ==
LOC: ED 23:25
DX: S93.401A Sprain of unspecified ligament of right ankle, initial encounter (principal); E78.5 Hyperlipidemia, unspecified; Z90.49 Acquired absence of other specified parts of digestive tract; X50.1XXA Overexertion from prolonged static or awkward postures, initial encounter; Y93.89 Activity, other specified; Y92.69 Other specified industrial and construction area as the place of occurrence of the external cause; Y99.8 Other external cause status
CPT/HCPCS: 73610; 96372; 99283; J1885

== ENCOUNTER → 2020-06-17 | Outpatient (CLI) | payer OTHER | END | disposition home or self-care (01) | LOC: RAD 09:55 | PROVIDERS: ATTEND Internal Medicine Hematology & Oncology | DX: S93.421D Sprain of deltoid ligament of right ankle, subsequent encounter (principal); X58.XXXD Exposure to other specified factors, subsequent encounter ==

== ENCOUNTER → 2020-06-24 | Outpatient (CLI) | payer OTHER ==
[~2020-06-24] MED LIST changes: +FENTANYL PF 100 MCG/2ML ONE; +FLUMAZENIL 0.1 MG/1 ML, 5ML ONE; +MIDAZOLAM 1 MG/ML, 5ML ONE; +NALOXONE 1 MG/ML, 2ML ONE
== END | disposition home or self-care (01) ==
LOC: RAD 08:45
PROVIDERS: ATTEND Nurse Practitioner Family
DX: G43.009 Migraine without aura, not intractable, without status migrainosus (principal); Z82.49 Family history of ischemic heart disease and other diseases of the circulatory system; Z83.3 Family history of diabetes mellitus; Z80.1 Family history of malignant neoplasm of trachea, bronchus and lung
CPT/HCPCS: 70551; 99156; 99157; J2250; J3010; J2310

== ENCOUNTER 2020-12-27 21:25 | Emergency (ER) | payer OTHER ==
[~2020-12-27] VITALS: Ht 160 cm; Wt 84.2 kg
[~2020-12-27 21:25] MED LIST changes: -FENTANYL PF 100 MCG/2ML ONE; -FLUMAZENIL 0.1 MG/1 ML, 5ML ONE; +HYDR-2214 PO; -HYDR-3240 PO; -MIDAZOLAM 1 MG/ML, 5ML ONE; -NALOXONE 1 MG/ML, 2ML ONE; -OXYC-302 PO; +OXYC1TAB14 PO
[2020-12-27 22:52] LABS: BASOPHILS % (AUTO) 0 % (0-1); EOSINOPHILS % (AUTO) 0 % (1-7); LYMPHOCYTES % (AUTO) 16 % (22-44); MEAN CORPUSCULAR HEMOGLOBIN 30.2 pg (27.0-34.8); MEAN CORPUSCULAR HGB CONC 33.8 g/dL (32.4-35.8); MEAN PLATELET VOLUME 7.6 fL (7.4-10.4); MONOCYTES % (AUTO) 13 % (2-9); NEUTROPHILS % (AUTO) 71 % (42-75); PLATELET COUNT 406 x10^3/uL (130-400); RED CELL DISTRIBUTION WIDTH 12.8 % (9.6-15.2)
[2020-12-27 23:04] LABS: ALANINE AMINOTRANSFERASE 38 U/L (12-78); ALBUMIN 3.1 g/dL (3.4-5.0); ANION GAP 3 mmol/L (5-15); CHLORIDE 107 mmol/L (98-107); CREATININE 0.62 mg/dL (0.55-1.02)
[2020-12-27 23:06] LABS: ALKALINE PHOSPHATASE 69 U/L (45-117); BILIRUBIN,TOTAL 0.1 mg/dL (0.2-1.0); TOTAL PROTEIN 6.9 g/dL (6.4-8.2)
[2020-12-27 23:15] LABS: MD NO
[2020-12-28] MEDS ORDERED: OMNIPAQUE 350 MG/ML, 100ML BOTTLE ONE (00:15)
[2020-12-28] MEDS ORDERED: MORPHINE SULFATE 4 MG/ML, 1ML IVPush PRN (00:30)
[2020-12-28] MEDS ORDERED: ONDANSETRON 2MG/ML, 2ML IVPush ONE (00:30)
[2020-12-28] MEDS ORDERED: ONDANSETRON 2MG/ML, 2ML ONE (00:37)
[2020-12-28] MEDS ORDERED: MORPHINE SULFATE 4 MG/ML, 1ML ONE (00:38)
--- NOTE | 2020-12-28 01:00 | NUR ---
PT STATES THAT HAS HAD ABD PAIN SINCE 12/18/20 AFTER RETURNING FROM [place] FOR 2 WEEKS PT STATES THAT HAS DIARRHEA FOR THE LAST 5 DAYS. PAIN IN THE ABD HAS GOTTEN WORSE 10/10 PAIN.
--- NOTE | 2020-12-28 01:01 | NUR ---
Pt to CT of abd with.
[2020-12-28 01:42] LABS: MICROSCOPIC NOT IND
[2020-12-28 04:02] VITALS: BP 116/67
--- NOTE | 2020-12-28 04:03 | NUR ---
Note roxannone in EDM - 12/28/20 at 0406 by [email or web address] PT STATES THAT HAS HAD ABD PAIN SINCE 12/18/20 AFTER RETURNING FROM [place] FOR 2 WEEKS PT STATES THAT HAS DIARRHEA FOR THE LAST 5 DAYS. PAIN IN THE ABD HAS GOTTEN WORSE 05/11 PAIN.
--- NOTE | 2020-12-28 04:06 | NUR ---
Patient give employee assitance program information. Patient given discharge instructions and they have confirmed that they understand the instructions. Patient ambulatory with steady gait. No questions at time of discharge.
== END 2020-12-28 04:11 | disposition home or self-care (01) ==
LOC: ED 12-28 03:55
DX: A09 Infectious gastroenteritis and colitis, unspecified (principal); R11.2 Nausea with vomiting, unspecified; R10.84 Generalized abdominal pain; Z90.49 Acquired absence of other specified parts of digestive tract
CPT/HCPCS: 36415; 74021; 74177; 80053; 81003; 83690; 85025; 96374; 96375; 99285; J2270; J2405; Q9967